=== PATIENT | female | born 1955 | race Caucasian/White ===

== ENCOUNTER → 2020-03-21 13:52 | Outpatient (BNVA) | payer MEDICARE, SELFPAY | PROVIDERS: PCP Nurse Practitioner Family; Visit Provider Student in an Organized Health Care Education/Training Program | DX: Z13.89 Encounter for screening for other disorder (principal) | CPT/HCPCS: Q3014 ==

== ENCOUNTER 2020-11-21 12:25 | Outpatient (REF) | payer MEDICARE, SELFPAY ==
[2020-11-21 14:53] LABS: Alanine Aminotransferase 23 U/L (0-31); Albumin Level 4.7 g/dL (3.5-5.0); Alkaline Phosphatase 59 U/L (39-117); Anion Gap 14 (12-20); Aspartate Amino Transferase 35 U/L (5-31); Bilirubin Total 0.4 mg/dL (0.0-1.0); Blood Urea Nitrogen 10 mg/dL (9-16); Calcium 10.2 mg/dL (8.4-10.2); Carbon Dioxide 29 mmol/L (22-29); Chloride 94 mmol/L (96-108); Estimated Glomerular Filt Rate > 60; Glucose Random 112 mg/dL (60-115); Potassium 4.6 mmol/L (3.3-5.1); Sodium 132 mmol/L (135-145); Total Protein 7.1 g/dL (6.5-8.0)
== END 2020-11-21 12:26 | disposition home or self-care (01) ==
LOC: HO.LAB 12:25
PROVIDERS: PCP Nurse Practitioner Family; Visit Provider Nurse Practitioner Family
DX: M47.816 Spondylosis without myelopathy or radiculopathy, lumbar region (principal)
CPT/HCPCS: 36415; 80053; 99212

== ENCOUNTER → 2021-07-20 12:12 | Outpatient (BNVA) | payer MEDICARE, SELFPAY | PROVIDERS: PCP Registered Nurse; Visit Provider Nurse Practitioner Family | DX: M47.816 Spondylosis without myelopathy or radiculopathy, lumbar region (principal); E87.1 Hypo-osmolality and hyponatremia | CPT/HCPCS: 99212 ==

== ENCOUNTER → 2022-03-18 11:37 | Outpatient (BNVA) | payer MEDICARE, SELFPAY | PROVIDERS: PCP Nurse Practitioner Family; Visit Provider Nurse Practitioner Family | DX: M47.816 Spondylosis without myelopathy or radiculopathy, lumbar region (principal) | CPT/HCPCS: 99212 ==

== ENCOUNTER 2022-08-16 12:55 | Outpatient (REF) | payer MEDICARE, SELFPAY ==
[2022-08-16 14:10] LABS: Alanine Aminotransferase 22 U/L (0-31); Albumin Level 4.6 g/dL (3.5-5.0); Alkaline Phosphatase 71 U/L (39-117); Anion Gap 15 (12-20); Aspartate Amino Transferase 30 U/L (5-31); Bilirubin Total 0.5 mg/dL (0.0-1.0); Blood Urea Nitrogen 11 mg/dL (9-16); Calcium 10.3 mg/dL (8.4-10.2); Carbon Dioxide 27 mmol/L (22-29); Chloride 103 mmol/L (96-108); Estimated Glomerular Filt Rate 53; Glucose Random 107 mg/dL (60-115); Potassium 5.4 mmol/L (3.3-5.1); Sodium 140 mmol/L (135-145); Total Protein 7.3 g/dL (6.5-8.0)
== END 2022-08-16 12:56 | disposition home or self-care (01) ==
LOC: HO.LAB 12:55
PROVIDERS: Visit Provider Nurse Practitioner Family
DX: M47.816 Spondylosis without myelopathy or radiculopathy, lumbar region (principal)
CPT/HCPCS: 36415; 80053

== ENCOUNTER 2022-11-22 09:35 | Outpatient (AMB) | payer MEDICARE, SELFPAY ==
[2022-11-22 09:42] VITALS: BP 140/68; PULSE 68; TEMP 36.3; O2SAT 97; BMI 20.7
--- NOTE | 2022-11-22 09:42 | MHC.OFFVIS ---
Intake Vital Signs 11/22/22 09:42 Height 5 ft 1 in Weight 109 lb 12.643 oz BMI 20.7 BP 140/68 H Blood Pressure Location Rt brachial Position Sitting Pulse 68 Pulse Source Pulse Oximeter Temp 97.4 F Temp Source Skin Pulse Oximetry (%) 97 Intake Visit Reasons: OA Intake Note: Pt seen today for OA follow up. 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 Accompanied by: Self / Same As Patient Allergies amitriptyline Allergy (Intermediate, Verified 11/22/22 09:47) Nightmare acetaminophen [Vicodin] Allergy (Unknown, Verified 11/22/22 09:47) hallucinations hydrocodone [Vicodin] Allergy (Unknown, Verified 11/22/22 09:47) hallucinations Medication List - Last Reconciled 11/22/22 by Choco Torres MD amlodipine 5 mg PO DAILY aspirin 81 mg PO DAILY B-complex with vitamin C 1 tab PO DAILY ferrous sulfate 325 mg PO DAILY gabapentin 100 mg PO TID losartan 50 mg PO DAILY metoprolol succinate ER 100 mg PO DAILY simvastatin 20 mg PO DAILY HPI HPI Comments History of Present Illness Details This is a 67-year-old female who presents for evaluation of chronic back pain. She is on gabapentin 100 mg t.i.d.. States that it helps her with spasms she does not do well if she does not taking. She continues to get back discomfort express Allyson when sitting down to read for hours at a time. She has been doing some stretches in bed more frequently recently. States that her bedroom floor is tilted and her bad is tilted. This does cause some back discomfort. COUNTS INCLUDE 234 BEDS AT THE [facility] Medical History Lumbar spondylosis HTN (hypertension) Carpal tunnel syndrome, bilateral Ganglion Osteoarthritis Surgical History H/O laminectomy Family History Father CVD (cardiovascular disease) Mother CVD (cardiovascular disease) Social History Household Members: None Alcohol intake: current Alcohol intake frequency: holidays/special occasions only Patient Tobacco Use Status: Current everyday Tobacco user Cigarettes Per Day: 4 Years Smoked: 20 Review of Systems [facility] [place] Reports back pain and Reports myalgias Physical Exam Vital Signs: Last Vital Signs Temp 97.4 F 11/22/22 09:42 Pulse 68 11/22/22 09:42 BP 140/68 H 11/22/22 09:42 Pulse Ox 97 11/22/22 09:42 BMI result Body Mass Index 20.7 Const General: cooperative, healthy appearing and comfortable Nutritional Appearance: average body habitus Orientation/consciousness: patient oriented x3 Limitations: no limitations HEENT Head: Yes normocephalic and Yes atraumatic Mouth: moist mucous membranes Resp Effort & Inspection: normal respiratory effort and able to speak in complete sentences Auscultation: clear to auscultation bilaterally Cardio Rate: regular rate Rhythm: regular rhythm Skin General skin exam: no rashes or lesions noted Neuro General: patient oriented x3 Extrem Other: Osteoarthritic changes of both hands with no active synovitis Normal range of motion of both hands, elbows, shoulder without pain Negative straight leg raise test bilaterally Assessment & Plan Assessment & Plan (1) Lumbar spondylosis: Code(s): M47.816 - Spondylosis without myelopathy or radiculopathy, lumbar region Plan: Previous xrays showed [id number] multilevel degenerative changes in the cervical, thoracic and lumbar spine. Patient continues to do well, her back pain is well controlled. She is using gabapentin 100mg TID. Continue gabapentin 100 mg t.i.d.. (2) Potassium excess: Code(s): E87.5 - Hyperkalemia Plan: Labs in August showed mild hyperkalemia at 5.4. Patient stated that she was a little dehydrated that day. DDx is broad and includes hemolysed sample, a side effect of losartan or other causes. Follow-up with PCP Plan I spent 26 minutes reviewing patient's chart, evaluating patient counseling patient and documenting in the chart Coding Level of Care Code Est Pt Level 4 (26393) Diagnoses Lumbar spondylosis M47.816 Potassium excess E87.5
== END 2022-11-22 10:19 | disposition home or self-care (01) ==
PROVIDERS: PCP Family Medicine; Referring Provider Nurse Practitioner Family; Visit Provider Student in an Organized Health Care Education/Training Program
DX: M47.816 Spondylosis without myelopathy or radiculopathy, lumbar region (principal); E87.5 Hyperkalemia
CPT/HCPCS: 99214

== ENCOUNTER → 2022-11-22 09:35 | Outpatient (BNVA) | payer MEDICARE, SELFPAY | PROVIDERS: PCP Family Medicine; Referring Provider Nurse Practitioner Family; Visit Provider Student in an Organized Health Care Education/Training Program | DX: M47.816 Spondylosis without myelopathy or radiculopathy, lumbar region (principal); E87.5 Hyperkalemia; Z79.899 Other long term (current) drug therapy | CPT/HCPCS: 99212 ==

== ENCOUNTER 2023-05-24 09:31 | Outpatient (AMB) | payer MEDICARE, SELFPAY ==
[2023-05-24 10:03] VITALS: BP 142/66; PULSE 66; O2SAT 100; BMI 20.4
--- NOTE | 2023-05-24 10:03 | A.OFFVIS_ITS ---
Intake Vital Signs 05/24/23 10:03 Height 5 ft 1 in Weight 108 lb 0.424 oz BMI 20.4 BP 142/66 H Blood Pressure Location Rt brachial Position Sitting Pulse 66 Pulse Source Pulse Oximeter Pulse Oximetry (%) 100 Oxygen Delivery Method Room Air Intake Visit Reasons: chronic back pain Intake Note: Patient last seen 11/22/22 presents today for follow up. 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 Accompanied by: Self / Same As Patient Allergies amitriptyline Allergy (Intermediate, Verified 05/24/23 10:14) Nightmare acetaminophen [Vicodin] Allergy (Unknown, Verified 05/24/23 10:14) hallucinations hydrocodone [Vicodin] Allergy (Unknown, Verified 05/24/23 10:14) hallucinations Medication List - Last Reconciled 05/24/23 by Choco Torres MD amlodipine 5 mg PO DAILY aspirin 81 mg PO DAILY B-complex with vitamin C 1 tab PO DAILY ferrous sulfate 325 mg PO DAILY gabapentin 100 mg PO TID losartan 50 mg PO DAILY metoprolol succinate ER 100 mg PO DAILY simvastatin 20 mg PO DAILY HPI HPI Comments History of Present Illness Details This is a 68-year-old female who presents for follow-up of chronic back pain. She is on gabapentin 100 mg t.i.d.. States that it helps her with spasms she does not do well if she does not taking. She states that recently she has been feeling that she does not have the strength to keep her back straight. She continues to do stretching exercises. I suggested doing some strengthening exercises. She also states that she has bilateral hand numbness, more severe on the right. Wakes her up at night. She had carpal tunnel release procedure years ago. [facility] [place] Medical History (Updated 05/24/23 @ 10:39 by Choco Torres MD) Lumbar spondylosis HTN (hypertension) Carpal tunnel syndrome, bilateral Ganglion Osteoarthritis Surgical History H/O laminectomy Family History Father CVD (cardiovascular disease) Mother CVD (cardiovascular disease) Social History Household Members: None Alcohol intake: current Alcohol intake frequency: holidays/special occasions only Patient Tobacco Use Status: Current everyday Tobacco user Cigarettes Per Day: 4 Years Smoked: 20 Review of Systems Musc Reports muscle weakness and Reports numbness Neuro Reports numbness Physical Exam Vital Signs: Last Vital Signs Pulse 66 05/24/23 10:03 BP 142/66 H 05/24/23 10:03 Pulse Ox 100 05/24/23 10:03 Oxygen Delivery Method Room Air 05/24/23 10:03 BMI result Body Mass Index 20.4 Const General: cooperative, healthy appearing and comfortable Nutritional Appearance: average body habitus Orientation/consciousness: patient oriented x3 Limitations: no limitations HEENT Head: Yes normocephalic and Yes atraumatic Mouth: moist mucous membranes Resp Effort & Inspection: normal respiratory effort and able to speak in complete sentences Auscultation: clear to auscultation bilaterally Cardio Rate: regular rate Rhythm: regular rhythm Skin General skin exam: no rashes or lesions noted Neuro General: patient oriented x3 Extrem Other: Cool hands consistent with Raynaud's Osteoarthritic changes of both hands with no active synovitis Normal range of motion of both hands, elbows, shoulder without pain Positive Tinel sign on the right Negative straight leg raise test bilaterally Assessment & Plan Assessment & Plan (1) Lumbar spondylosis: Code(s): M47.816 - Spondylosis without myelopathy or radiculopathy, lumbar region Plan: Previous xrays showed [id number] multilevel degenerative changes in the cervical, thoracic and lumbar spine. Patient continues to do well, her back pain is well controlled. She is using gabapentin 100mg TID. Continue gabapentin 100 mg t.i.d.. Patient can get refills from her PCP. No need for regular follow-up with me. (2) Carpal tunnel syndrome, bilateral: Code(s): G56.03 - Carpal tunnel syndrome, bilateral upper limbs Plan: S/p release on the left. Continues to have bilateral hand numbness, more severe on the left. Advised patient to follow-up with a hand surgeon Plan I spent 26 minutes reviewing patient's chart, evaluating patient counseling patient and documenting in the chart Coding Level of Care Code Est Pt Level 3 (71123) Diagnoses Lumbar spondylosis M47.816 Carpal tunnel syndrome, bilateral G56.03
== END 2023-05-24 10:37 | disposition home or self-care (01) ==
PROVIDERS: PCP Family Medicine; Visit Provider Student in an Organized Health Care Education/Training Program
DX: M47.816 Spondylosis without myelopathy or radiculopathy, lumbar region (principal); G56.03 Carpal tunnel syndrome, bilateral upper limbs
CPT/HCPCS: 99213

== ENCOUNTER → 2023-05-24 09:31 | Outpatient (BNVA) | payer MEDICARE, SELFPAY | PROVIDERS: PCP Family Medicine; Visit Provider Student in an Organized Health Care Education/Training Program | DX: M47.816 Spondylosis without myelopathy or radiculopathy, lumbar region (principal); G56.03 Carpal tunnel syndrome, bilateral upper limbs | CPT/HCPCS: 99212 ==